=== PATIENT | male | born 1960 | race African-American/Black ===

== ENCOUNTER 2020-02-19 11:15 | Outpatient (RCR) | payer OTHER ==
[~2020-02-19 11:15] MED LIST: ASPIRIN 81M81 MG/TA2 PO; HCTZ 25MG TAB25 MG PO; LIPITOR 40MG TA40 MG PO; NORVASC 10MG10 MG PO
[2020-02-20] MEDS ORDERED: PLAQUENIL 200M200 MG PO (14:12)
[2020-02-20] MEDS ORDERED: NOVOLOG FLEX100 U/ML SQ (14:13)
[2020-02-20] MEDS ORDERED: LEVEMIR FLEX100 U/ML SQ (14:14)
[2020-02-20] MEDS ORDERED: PRINIVIL5 MG PO (14:18)
[2020-02-20] MEDS ORDERED: PLAVIX 75MG TAB75 MG PO (14:32)
[2020-02-20] MEDS ORDERED: K-DUR 10 MEQ T10 MEQ PO (15:26)
[2020-02-21] MEDS ORDERED: TRUE COMFORT P1 EAC1 MC (12:46)
== END 2020-04-01 | disposition home or self-care (01) ==
LOC: WSST
DX: I69.318 Other symptoms and signs involving cognitive functions following cerebral infarction (principal)

== ENCOUNTER → 2020-04-06 | Emergency (ER) | payer MEDICARE ==
[~2020-04-06] VITALS: Ht 172.7 cm; Wt 102.3 kg
[~2020-04-06] MED LIST changes: +ANTIVERT 25MG25 MG PO; +GLUCOPHAGE500 MG/TAB PO; +K-DUR 10 MEQ T10 MEQ PO; +LEVEMIR FLEX100 U/ML SQ; +NOVOLOG FLEX100 U/ML SQ; +PLAQUENIL 200M200 MG PO; +PLAVIX 75MG TAB75 MG PO; +PRINIVIL5 MG PO; +PROMETHAZINE12.5 M5 PO; +TRUE COMFORT P1 EAC1 MC
[2020-04-06 13:09] VITALS: TEMP 97.8
[2020-04-06 13:32] LABS: BASO # 0.1 (0.0-0.2); BASO % 0.9 % (0.0-2.0); EOS # 0.2 (0.0-0.7); EOS % 2.3 % (0-4.0); GRAN # 3.6 (1.4-6.5); GRAN % 39.4 % (42.2-75.2); HEMATOCRIT 45.2 % (42.0-52.0); HEMOGLOBIN 15.1 g/dl (13.5-18.0); LYMPH # 4.5 (1.2-3.4); LYMPH % 49.6 % (20.0-51.0); MEAN CELL VOLUME 88 fl (80.0-100.0); MEAN CORPUSCULAR HEMOGLOBIN 30 pg (27.0-31.0); MEAN CORPUSCULAR HGB CONC 33 g/dl (33.0-37.0); MEAN PLATELET VOLUME 9.9 fl (7.4-10.4); MONO # 0.7 (0.1-0.6); MONO % 7.6 % (1.7-9.3); PLATELET COUNT 310 K/mm3 (130-400); RED BLOOD COUNT 5.12 M/mm3 (4.20-5.60); REDCELL DISTRIBUTION WIDTH-CV 13.5 % (11.5-14.5)
[2020-04-06 13:39] LABS: INR 1.1 (0.8-3.0); PROTHROMBIN TIME 12.2 SECONDS (9.7-12.8)
[2020-04-06 13:43] LABS: ALANINE AMINOTRANSFERASE 55 U/L (4-49); ALBUMIN 4.4 gm/dL (3.5-5.0); ALKALINE PHOSPHATASE 91 U/L (50-136); ANION GAP 7 mmol/L (7-16); AST,SGOT 36 U/L (15-37); BLOOD UREA NITROGEN 14 mg/dL (9-20); CALCIUM 9.7 mg/dL (8.4-10.2); CARBON DIOXIDE 28 mmol/L (22-30); CHLORIDE 103 mmol/L (98-107); CREATINE KINASE 158 U/L (55-170); CREATININE, serum 0.92 (0.66-1.25); GLUCOSE 116 mg/dL (74-106); POTASSIUM 3.7 mmol/L (3.4-5.0); SODIUM 138 mmol/L (137-145)
[2020-04-06 13:49] LABS: C-REACTIVE PROTEIN < 0.5 mg/dL (0.0-0.9)
[2020-04-06 13:55] LABS: TROPONIN-I < 0.012 ng/mL (0.000-0.035)
[2020-04-06 15:10] VITALS: BP 145/85; PULSE 67
== END ==
LOC: COL.ER 12:54
PROVIDERS: Emergency Medicine
DX: R42 Dizziness and giddiness (principal); E11.9 Type 2 diabetes mellitus without complications; I10 Essential (primary) hypertension; E78.5 Hyperlipidemia, unspecified; Z86.73 Personal history of transient ischemic attack (TIA), and cerebral infarction without residual deficits; Z86.19 Personal history of other infectious and parasitic diseases; Z79.4 Long term (current) use of insulin; Z79.82 Long term (current) use of aspirin; Z79.02 Long term (current) use of antithrombotics/antiplatelets
CPT/HCPCS: J2550; J7030

== ENCOUNTER → 2020-05-12 | Outpatient (CLI) | payer MEDICARE | LOC: DIA.ED 13:00 | DX: E11.9 Type 2 diabetes mellitus without complications (principal); Z79.4 Long term (current) use of insulin; E78.5 Hyperlipidemia, unspecified; I10 Essential (primary) hypertension ==

== ENCOUNTER 2020-07-15 10:41 | Outpatient (CLI) | payer MEDICARE ==
[2020-07-15 12:10] LABS: HEMATOCRIT 43.3 % (42.0-52.0); HEMOGLOBIN 14.6 g/dl (13.5-18.0); MEAN CELL VOLUME 86 fl (80.0-100.0); MEAN CORPUSCULAR HEMOGLOBIN 29 pg (27.0-31.0); MEAN CORPUSCULAR HGB CONC 34 g/dl (33.0-37.0); MEAN PLATELET VOLUME 10.5 fl (7.4-10.4); PLATELET COUNT 270 K/mm3 (130-400); RED BLOOD COUNT 5.02 M/mm3 (4.20-5.60); REDCELL DISTRIBUTION WIDTH-CV 13.3 % (11.5-14.5)
[2020-07-15 12:18] LABS: CREATININE, serum 1.14 (0.66-1.25); INR 1.1 (0.8-3.0); PROTHROMBIN TIME 11.8 SECONDS (9.7-12.8)
[2020-07-15] MEDS ORDERED: PLAVIX 75MG TAB75 MG PO (12:18)
[2020-07-15] MEDS ORDERED: PRINIVIL5 MG PO (12:25)
[2020-07-15 12:30] VITALS: BP 132/87; PULSE 49; TEMP 97.5
[2020-07-15 13:15] VITALS: BP 136/92; PULSE 56
[2020-07-15 13:20] VITALS: BP 139/84; PULSE 57
[2020-07-15 13:30] VITALS: BP 127/81; PULSE 57
[2020-07-15 13:45] VITALS: BP 143/88; PULSE 47
[2020-07-15 14:00] VITALS: BP 147/101; PULSE 54
--- NOTE | 2020-07-15 14:08 | NUR ---
Discharge instructions given to pt.Pt verbalizes understanding.INT removed,catheter tip intact.
--- NOTE | 2020-07-15 14:30 | NUR ---
Pt escorted out via wheelchair by this nurse.
== END 2020-07-15 14:31 | disposition home or self-care (01) ==
LOC: COL.RAD 10:41
PROVIDERS: Internal Medicine Cardiovascular Disease
DX: I63.9 Cerebral infarction, unspecified (principal); Z20.828 Contact with and (suspected) exposure to other viral communicable diseases
CPT/HCPCS: J2704; J7120

== ENCOUNTER 2020-10-08 15:15 | Outpatient (RCR) | payer MEDICARE | END 2020-11-24 | disposition home or self-care (01) | LOC: WSST | DX: R41.3 Other amnesia (principal); R41.841 Cognitive communication deficit ==

== ENCOUNTER 2021-02-16 15:15 | Outpatient (RCR) | payer MEDICARE | END 2021-03-01 | disposition home or self-care (01) | LOC: WSST | DX: I69.311 Memory deficit following cerebral infarction (principal); R41.81 Age-related cognitive decline; I10 Essential (primary) hypertension; E11.9 Type 2 diabetes mellitus without complications; Z79.4 Long term (current) use of insulin; Z86.16 Personal history of COVID-19 ==

== ENCOUNTER → 2024-01-17 | Outpatient (CLI) | payer MEDICARE, OTHER ==
[~2024-01-17] MED LIST changes: +AMOXICILLIN 8751 TAB PO
== END ==
LOC: COL.RAD 14:23
DX: I63.81 Other cerebral infarction due to occlusion or stenosis of small artery (principal); F01.50 Vascular dementia, unspecified severity, without behavioral disturbance, psychotic disturbance, mood disturbance, and anxiety